=== PATIENT | female | born 1935 | race Caucasian/White ===

== ENCOUNTER → 2016-08-11 08:25 | Outpatient (CLI) | payer MEDICARE, BC ==
[~2016-08-11 08:25] MED LIST: CLARITIN 10 MG10 MG PO; COUMADIN6 MG PO; FERROUS SULFAT325 MG PO; LEVOTHYROXINE150 MCG PO; LOPRESSOR25 MG PO; PHENERGAN25 M1 PO; PRAVACHOL40 MG PO; ULTRAM50 MG PO; VITAMIN D31000 UNI2 PO
[2016-08-30 10:09] VITALS: BMI 37.2
== END | disposition home or self-care (01) ==
LOC: D.US 08:25
DX: B18.2 Chronic viral hepatitis C (principal)

== ENCOUNTER 2016-08-29 05:21 | Inpatient (IN) | payer MEDICARE, BC ==
[2016-08-28 14:22] LABS: HEMATOCRIT 42.9 % (36.0-48.0); HEMOGLOBIN 14.5 g/dL (12-16); MCH 30.9 pg (26.0-34.0); MCHC 33.8 g/dL (31.0-37.0); MCV 91.3 fL (80.0-100.0); MEAN PLATELET VOLUME 11.5 fL (7.4-10.4); PLATELET COUNT 117 10x3/uL (130-400); RDW 14.4 % (11.5-14.5)
[2016-08-28 14:32] LABS: APTT 33.2 SECONDS (22.8-39.4); INR 1.61 (0.85-1.17); PROTIME 19.1 SECONDS (11.6-15.0)
[2016-08-28 14:34] LABS: ANION GAP 11.3 mmol/L (8-16); CALCIUM 8.9 mg/dL (8.5-10.1); CARBON DIOXIDE 27.7 mmol/L (21.0-32.0); CREATININE - SERUM 0.8 mg/dL (0.6-1.3)
[2016-08-28 15:16] LABS: EOSINOPHILS 2 % (0-7); LYMPHOCYTES 56 % (15-50); MONOCYTES 1 % (2-11); NEUTROPHILS 40 % (40-80)
[2016-08-28 15:17] LABS: PLATELET ESTIMATE DECREASED
[2016-08-29] VITALS (22 sets, daily range): BP systolic 61–132; BP diastolic 22–91; BMI 33.3; BMI 33.1
[~2016-08-29] VITALS: Ht 165.1 cm; Wt 98.7 kg
[~2016-08-29 05:21] MED LIST changes: -PHENERGAN25 M1 PO; -ULTRAM50 MG PO
--- NOTE | 2016-08-29 06:44 | NUR ---
0649 CALLED SURGERY AND TALKED TO MILVIA ABOUT PLT COUNT AND PT/INR. SHE IS TO TELL LAWRENCE ABOUT WHEN HE COMES IN.
[2016-08-29] MEDS ORDERED: PHENERGAN25 M1 PO (08:42)
[2016-08-29] MEDS ORDERED: ULTRAM50 MG PO (08:42)
--- NOTE | 2016-08-29 10:14 | NUR ---
2448 BACK FROM [facility] PATIENT VERY SLEEPY AND RESP EVEN AND NONLA- BORED WOULD NOT MOVE FROM STRETCHER TO BED. HAD TO ASSIST FROM WITH 3 PEOPLE FROM STRETCHER TO BED. OPENS EYES AND SLEEPY.
--- NOTE | 2016-08-29 10:23 | NUR ---
1010 LR MODESTO OPEN.
--- NOTE | 2016-08-29 11:57 | NUR ---
1125 ENCOURAGED TO MOVE ASSISTED WITH GIVING SOME JELLO.
--- NOTE | 2016-08-29 13:32 | OP ---
PATIENT NAME: ALFONZO MAS MEDICAL RECORD: [id number] :37 LOCATION:D.OPS ADMISSION DATE: SURGEON: THEODORE BRAVO MD DATE OF OPERATION: 08/29/2016 PREOPERATIVE DIAGNOSES: 1. Gallstones. 2. Atrial fibrillation. 3. Hyperthyroidism. POSTOPERATIVE DIAGNOSES: 1. Gallstones. 2. Atrial fibrillation. 3. Hyperthyroidism. PROCEDURE: Laparoscopic cholecystectomy. SURGEON: Theodore Bravo MD REPORT OF PROCEDURE: The patient's abdomen was prepped and draped in sterile fashion. A cutdown was made on the superior aspect of the umbilicus, 0 Vicryls were placed in the fascia bilaterally and the fascia was incised with a 15 blade and bluntly entered the peritoneal cavity and placed a 12-mm Westley port. Under direct visualization, a 5 mm trocar was placed in the epigastrium and 2 more 5-mm trocars were placed in the right subcostal region. The gallbladder was elevated and it showed no sign of any inflammatory changes. The liver looked precirrhotic. The cystic artery and duct were dissected free and these were clipped proximally and distally and ligated in standard fashion. The gallbladder was taken off the liver bed using electrocautery and placed into an Endo Catch bag. At this point, the right upper quadrant was irrigated out and care was taken to make sure that any bleeding was treated with electrocautery. The ports and insufflation were then removed and the gallbladder was taken out through the umbilicus. The umbilical fascia was closed with interrupted 0 Vicryls times 3. The wounds were irrigated out with normal saline and infused with 10 mL of 0.25% Marcaine with epinephrine. The skin incisions were all closed with subcutaneous 5-0 Monocryl and dressed appropriately. COMPLICATIONS: None. CONDITION: Stable. ANESTHESIA: General endotracheal and local. BLOOD LOSS: Minimal. TRANSINT:[id number] Voice Confirmation ID: [id number] DOCUMENT ID: [id number] OPERATIVE REPORT [id number] ALFONZO MAS CHRISTIAN MD at 1332 CC: JOSE ALFREDO WALDRON MD [id number] DICTATION DATE: 08/29/16 0845 WATCH PARTS INSPECTOR: 08/29/16 0913 [id number] [place] [address]
--- NOTE | 2016-08-29 13:36 | NUR ---
1225 DENIES THE NEED FOR PAIN MEDS VERY LETHARGIC AND SLEPY ENCOURAGED TO WAKE UP AND TAKE FLUIDS BUT VERY DROWSY WILL OBSERVE.
--- NOTE | 2016-08-29 16:31 | NUR ---
[address] BRAVO PATIENT VERY WEAK AND DROWSY STILL NO NEW ORDERS JUST OBSERVE.
--- NOTE | 2016-08-29 16:41 | NUR ---
1500 TRIED TO GET PATIENT UP WENT TO ASSIST PATIENT UP AND SAT AND GOT VERY WEAK PALE HOT AND B/P DROPPED. PATIENT LIED BACK IN THE BED AND HAD SOME APNEA BUT THAN ROUSED SOME. V/S TAKEN B/P 62/32 77 16 LR OPEN AND TILTED BED. INCONTINENT OF URINE BED LINENS CHANGED.
--- NOTE | 2016-08-29 16:57 | NUR ---
1600 RESTING ORDERS RECEIVED FOR OBSERVATION TO BE MONITORED PATIENT IS DROWSY AND NEEDS TO BE MONITORED AND NOT SAFE FOR DISCHARGE.
--- NOTE | 2016-08-29 17:30 | NUR ---
PT TO ROOM 2223 VIA BED FROM OUTPATIENTS.PT NOT AWAKENING EASILY AND HAS GARBLED SPEACH.PT C/O NAUSEA AND IS SWEATY.BP VERY LOW SEE GRAPHICS.RAPID RESPONCE CALLED SEE RAPID SHEET.
--- NOTE | 2016-08-29 18:04 | NUR ---
RECIEVED PT AT THIS TIME FROM FLOOR FOR HYPOTENSION. PT ALERT AND ORIENTED. TRANSFERRED VIA BED WITH ACCOMPANIMENT FROM STAFF. PT FAMILY AWARE. TEMPERATURE NOTED AT 95.4 WHEN PT ARRIVED TO FLOOR, BEAR HUGGER PLACED. WILL CONTINUE PLAN OF CARE.
[2016-08-29 18:07] LABS: BASOPHILS 0.2 % (0.0-2.0); EOSINOPHILS 0.2 % (0-7); IMMATURE GRANULOCYTES 0.5 % (0-5); LYMPHOCYTES 16.6 % (15-50); MCH 30.1 pg (26.0-34.0); MCHC 31.8 g/dL (31.0-37.0); MEAN PLATELET VOLUME 11.7 fL (7.4-10.4); MONOCYTES 6.9 % (2-11); NEUTROPHILS 75.6 % (40-80); RDW 14.7 % (11.5-14.5)
[2016-08-29 18:08] LABS: HEMATOCRIT 32.1 % (36.0-48.0); HEMOGLOBIN 10.2 g/dL (12-16); MCV 94.7 fL (80.0-100.0); PLATELET COUNT 166 10x3/uL (130-400); RBC 3.39 10x6/uL (4.00-5.40); WBC 13.3 10x3/uL (4.8-10.8)
--- NOTE | 2016-08-29 18:09 | NUR ---
1530 REPORTED V/S AND SYNCOPAL EPISODE TO DR. CESPEDES AND PATIENT HOT AND COLD. ORDERS RECEIVED.
--- NOTE | 2016-08-29 18:11 | NUR ---
1635 TO ROOM VIA BED TRANSFERRED BY 2 NURSES. REPORT WAS GIVEN TO CHELSEA MANRIQUE.
--- NOTE | 2016-08-29 19:00 | NUR ---
1900: Pt SBP 70's at this time. Pt left hand PIV changed to LR.
--- NOTE | 2016-08-29 19:07 | NUR ---
BOLUS DOSE OF TRANEXAMIC ACID INITIATED AT 240 CC/HR, PER ORDER
--- NOTE | 2016-08-29 19:30 | NUR ---
1930: Transexamic Acid infusing over 15 minutes. Verified with pharmacy.
--- NOTE | 2016-08-29 19:30 | NUR ---
1930: Pt to CT with x2 RNs.
[2016-08-29 19:37] LABS: INR 1.55 (0.85-1.17); PROTIME 18.5 SECONDS (11.6-15.0)
[2016-08-29 19:39] LABS: APTT 24.2 SECONDS (22.8-39.4)
--- NOTE | 2016-08-29 20:00 | NUR ---
2000: Pt c/o nausea, but has not vommitted. Pt SBP remains 80-90's. Zofran IVP admin.
[2016-08-29 20:46] LABS: HEMATOCRIT 31.2 % (36.0-48.0); HEMOGLOBIN 9.8 g/dL (12-16); MCH 29.7 pg (26.0-34.0); MCHC 31.4 g/dL (31.0-37.0); MCV 94.5 fL (80.0-100.0); MEAN PLATELET VOLUME 11.5 fL (7.4-10.4); RBC 3.3 10x6/uL (4.00-5.40); RDW 14.7 % (11.5-14.5); WBC 16.1 10x3/uL (4.8-10.8)
--- NOTE | 2016-08-29 21:00 | NUR ---
2100: Dr. Lucero here at bedside. Levophed gtt started at 5 mcg/min to keep SBP >90. Pt skin cool to touch and c/o "chills." Ekaterina Hugger remains in place. During assessment pt midline lap incision sites bleeding small amount of blood. MD assessed. ABD distended and BS remain absent x4 with auscultation.
--- NOTE | 2016-08-29 21:15 | NUR ---
2115: Pt alert and oriented. Discussed CVL placement with patient including risks vs benifits. Pt agrees. Dr. Lucero inserted right jugular triple lumen catheter at this time.
--- NOTE | 2016-08-29 21:30 | NUR ---
2130: FFP ready and started per CVL, Levophed changed to CVL and continue to titrate to keep SBP >90.
--- NOTE | 2016-08-29 22:45 | NUR ---
2245: Lab returned and called to Dr. Lucero. New orders rec'd. 2 amps NAHCO3- IVP admin and CACL- 1 gram IV over 1 hour started via CVL. PRBC ordered.
[2016-08-29 22:47] LABS: BASOPHILS 0.1 % (0.0-2.0); EOSINOPHILS 0 % (0-7); HEMATOCRIT 26.6 % (36.0-48.0); HEMOGLOBIN 8.5 g/dL (12-16); IMMATURE GRANULOCYTES 0.5 % (0-5); LYMPHOCYTES 9.7 % (15-50); MCH 29.9 pg (26.0-34.0); MCV 93.7 fL (80.0-100.0); MONOCYTES 10.8 % (2-11); NEUTROPHILS 78.9 % (40-80); PLATELET COUNT 170 10x3/uL (130-400); RBC 2.84 10x6/uL (4.00-5.40); RDW 14.6 % (11.5-14.5); WBC 15.2 10x3/uL (4.8-10.8)
--- NOTE | 2016-08-29 23:40 | NUR ---
2340: Segovia catheter placed by Kaylah So RN under sterile technique and immediate yellow urine return. Placed to gravity at this time.
--- NOTE | 2016-08-29 23:45 | NUR ---
2345: PRBC started at this time wtih NS and blood tubing. Pt temp 98F oral at this time. Ekaterina Hugger remains in place. Continue to titrate Levophed to keep SBP >90 mmhg.
[2016-08-30] VITALS (69 sets, daily range): BP systolic 86–140; BP diastolic 49–72; Ht 165.1 cm; Wt 98.7 kg
--- NOTE | 2016-08-30 02:00 | NUR ---
0200: Dr. Lucero called and update provided. No new orders at this time. Pt levophed remains 15 mcg/min.
--- NOTE | 2016-08-30 05:00 | NUR ---
0500: Pt SBP >100 and continue to titrate levophed down at this time. PRBCs completed. Pt remains SR 90s on CM. Pt states nausea is better.
[2016-08-30 05:03] LABS: BASOPHILS 0.1 % (0.0-2.0); EOSINOPHILS 0.1 % (0-7); HEMATOCRIT 30.8 % (36.0-48.0); IMMATURE GRANULOCYTES 0.3 % (0-5); LYMPHOCYTES 13.8 % (15-50); MCH 29.9 pg (26.0-34.0); MCHC 32.5 g/dL (31.0-37.0); MCV 91.9 fL (80.0-100.0); MEAN PLATELET VOLUME 11.3 fL (7.4-10.4); MONOCYTES 12.8 % (2-11); NEUTROPHILS 72.9 % (40-80); PLATELET COUNT 142 10x3/uL (130-400); RBC 3.35 10x6/uL (4.00-5.40); RDW 14.6 % (11.5-14.5); WBC 14.5 10x3/uL (4.8-10.8)
[2016-08-30 05:14] LABS: APTT 28.9 SECONDS (22.8-39.4); INR 1.23 (0.85-1.17); PROTIME 15.4 SECONDS (11.6-15.0)
[2016-08-30 05:25] LABS: ALBUMIN 2.6 g/dL (3.4-5.0); ANION GAP 12.3 mmol/L (8-16); BILIRUBIN - TOTAL 0.85 mg/dL (0.2-1.3); CALCIUM 8.5 mg/dL (8.5-10.1); CARBON DIOXIDE 26.8 mmol/L (21.0-32.0); CREATININE - SERUM 1.3 mg/dL (0.6-1.3); MAGNESIUM - SERUM 1.3 mg/dL (1.8-2.4); PHOSPHOROUS 2.7 mg/dL (2.5-4.9); POTASSIUM - SERUM 4.1 mmol/L (3.5-5.1); PROTEIN - SERUM 5.1 g/dL (6.4-8.2)
--- NOTE | 2016-08-30 06:00 | NUR ---
0600: Pt's here at bedside. Update provided at this time.
[2016-08-30 14:23] LABS: HEMATOCRIT 29.1 % (36.0-48.0); HEMOGLOBIN 9.6 g/dL (12-16)
--- NOTE | 2016-08-30 19:30 | NUR ---
1930: Pt resting in bed with eyes closed. Open to verbal. Pt states she is feeling much better today. Pt remains SR on CM with SBP >100. Right Jugular CVL intact with LR at 100 cc/hr. Levophed remains off. No s/s of bleeding, oozing, or swelling assessed. ABD remains distended, but BS active and pt reports she is passing gas. Segovia remains to gravity with >30 cc/hr UOP.
--- NOTE | 2016-08-30 23:15 | NUR ---
2315: Pt requests pain medicine for back pain. Pt states that it helps a lot. Pt remains SR 70's on CM with SBP >100. Remains off levophed gtt. Provided pain rx and pt able to swallow without difficulty. No bleeding is seen.
[2016-08-31] VITALS (19 sets, daily range): BP systolic 109–137; BP diastolic 49–84
--- NOTE | 2016-08-31 02:00 | NUR ---
0200: Pt resting with eyes closed at this time. Easily arousable to verbal. Pt with no c/o at this time. Pt remains SR on CM with SBP >100. No s/s of bleeding noted.
--- NOTE | 2016-08-31 04:30 | NUR ---
0430: Pt resting with eyes closed. Open to verbal and pt LOCx3. Pt remains SR on CM with SBP 120's. Levophed remains off. Pt continues with 024LNC with RR decreased while sleeping 14-18x with SPO2 95%. ABD distended, but BS remain active. Pt describes intermittent "upset stomach" and "throat pain." Pt describes as burning. Carafate admin as per orders. No s/s of bleeding noted. Offered to reposition pt. Pt refused. Pt did request ice chips. Provided as per clear liquid diet. Pt reports no difficulty with swallow.
[2016-08-31 04:45] LABS: BASOPHILS 0.1 % (0.0-2.0); EOSINOPHILS 0.1 % (0-7); HEMATOCRIT 26.2 % (36.0-48.0); HEMOGLOBIN 8.5 g/dL (12-16); IMMATURE GRANULOCYTES 0.2 % (0-5); LYMPHOCYTES 23.2 % (15-50); MCH 30.1 pg (26.0-34.0); MCHC 32.4 g/dL (31.0-37.0); MCV 92.9 fL (80.0-100.0); MEAN PLATELET VOLUME 10.8 fL (7.4-10.4); MONOCYTES 10.3 % (2-11); NEUTROPHILS 66.1 % (40-80); RBC 2.82 10x6/uL (4.00-5.40); RDW 15.5 % (11.5-14.5)
[2016-08-31 04:48] LABS: PLATELET COUNT 99 10x3/uL (130-400); WBC 8.3 10x3/uL (4.8-10.8)
[2016-08-31 04:53] LABS: ANION GAP 6.8 mmol/L (8-16); CALCIUM 7.8 mg/dL (8.5-10.1); POTASSIUM - SERUM 4.3 mmol/L (3.5-5.1)
[2016-08-31 04:56] LABS: CARBON DIOXIDE 34.5 mmol/L (21.0-32.0); CREATININE - SERUM 0.8 mg/dL (0.6-1.3)
--- NOTE | 2016-08-31 17:03 | NUR ---
0830-DR LYNCH AT [facility]-PT AWAKE AD ALERT-R CVL SALINE LOCKED-ASSISTED TO BEDSIDE CHAIR-PROVIDED WITH ORAL CARE SUPPLIES-PARTIAL BATH GIVEN 09-AMBULATED WITH PT WITH WALKER IN UNIT 1030-SITTING UP IN CHAIR-DR CESPEDES CALLED UNIT 1330-ASSISTED BACK TO BED 1700-JACKY Miller/June
--- NOTE | 2016-08-31 18:04 | NUR ---
1729-PT ASLEEP-AWAKENED FOLLOWING PERSISTANT VERBAL AND TACTILE STIMULI-AWAKENED DISORIENTED-SLUGGISH TO FOLLOW COMMANDS-JACKY MERAZ D/C'D WITH TIP INTACT-CONTINUED TO REORIENT PT TO SITUATION-ASKED PT WHAT TYPE OF SURGERY SHE STATED APPLES-ASKED HER WHO THE SURGEON WAS-SHE STATED-LUZMARIA?-ASKED HER WHERE SHE WAS -SHE STATED ONAISCOOTER?-ASKED HER WHO HER REGULAR DR WAS SHE STATED KIMBERLEY--ATTEMPTED TO DRINK [id number] BUBBLED IN STRAW-KBRLa
--- NOTE | 2016-08-31 19:35 | NUR ---
1800-SPOKE WITH DR AMADOR AND INFORMED OF VERBAL XFLIG-[id number]-ORDER RECIEVED AND NOTED 1829-DR CESPEDES AT [facility] AND UPDATED WITH INCIDENT AND ORDER XDE-[id number]-EAEH D/C'D-STATED TOO HIGH RISK -REQUESTED TO LEAVE IN ICU TONIGHT AND CANCEL TRANSFER-NURSING SANITATION LEAD NOTIFIED-RUBEN
--- NOTE | 2016-08-31 19:43 | NUR ---
REPORT RECIEVED. ASSESSMENT COMPLETE PER FLOW SHEET. VSS. PT AWAKE ALERT ORIENTED X4 GIVEN ICE CREAM PER REQUEST. PT DENIES PAIN OR FURTHER NEEDS. O2 VIA NC 2L 98% RR 16 BILAT LUNGS CLEAR. ABD SOFT BS ACTIVE X4. GENERALIZED EDEMA NOTED X4 EXTREMETIES. HEART S1S2 HR 94 NSR. WILL CONTINUE TO MONITOR.
[2016-08-31 20:01] LABS: HEMATOCRIT 28.2 % (36.0-48.0); HEMOGLOBIN 8.9 g/dL (12-16)
--- NOTE | 2016-08-31 21:24 | NUR ---
NO FAMILY AT BEDSIDE. 2100 MEDS ADM WITHOUT DIFFICULTY. NO NEW FINDINGS. VSS
--- NOTE | 2016-08-31 22:35 | NUR ---
RECIEVED PT TO FLOOR FROM ICU VIA WHEELCHAIR. PT IS ALERT AND ORIENTED AND ABLE TO VERBALIZE NEEDS. IV IS PATENT AND SALINE LOC AT THIS TIME. PT IS AMBULATORY WITH ASSISTANCE. PT DENIES ANY PAIN AT THIS TIME. O2 @ 2 PER NASAL CANNULA. PT IS ORIENTED TO ROOM AND USE OF CALL LIGHT. NO NEEDS ARE VERBALIZED AT THIS TIME. WILL CONTINUE TO MONITOR. SIDE RAILS ARE UP X 2. BED IS IN LOWEST POSITION. CALL LIGHT IS WITHIN REACH.
--- NOTE | 2016-08-31 22:37 | NUR ---
REPORT GIVEN. PT TRANSFERED. VSS. DENIES NEEDS.
[2016-09-01 01:00] VITALS: BP 148/52
[2016-09-01 05:00] VITALS: BP 138/78
[2016-09-01 05:38] LABS: BASOPHILS 0.1 % (0.0-2.0); EOSINOPHILS 1.6 % (0-7); HEMATOCRIT 28.3 % (36.0-48.0); HEMOGLOBIN 8.9 g/dL (12-16); IMMATURE GRANULOCYTES 0.6 % (0-5); LYMPHOCYTES 27.7 % (15-50); MCH 30.4 pg (26.0-34.0); MCHC 31.4 g/dL (31.0-37.0); MONOCYTES 10.9 % (2-11); NEUTROPHILS 59.1 % (40-80); RBC 2.93 10x6/uL (4.00-5.40); RDW 15.7 % (11.5-14.5); WBC 8.4 10x3/uL (4.8-10.8)
[2016-09-01 05:48] LABS: MCV 96.6 fL (80.0-100.0); PLATELET COUNT 120 10x3/uL (130-400)
[2016-09-01 06:10] LABS: ALBUMIN 2.7 g/dL (3.4-5.0); ALKALINE PHOSPHATASE 62 U/L (46-116); BILIRUBIN - TOTAL 0.41 mg/dL (0.2-1.3); CALC OSMOLALITY 283 mosm/kg (275-300); CALCIUM 8.3 mg/dL (8.5-10.1); CARBON DIOXIDE 35.1 mmol/L (21.0-32.0); CHLORIDE - SERUM 103 mmol/L (98-107); CREATININE - SERUM 0.7 mg/dL (0.6-1.3); GLUCOSE 154 mg/dL (74-106); PHOSPHOROUS 2.1 mg/dL (2.5-4.9); POTASSIUM - SERUM 4.5 mmol/L (3.5-5.1); PROTEIN - SERUM 5.9 g/dL (6.4-8.2); SODIUM 140 mmol/L (136-145); UREA NITROGEN 19 mg/dL (7-18); eGFR NON AFRICAN AMERICAN 86 mL/min (90-120)
[2016-09-01 06:26] LABS: ALT (SGPT) 81 U/L (10-68); MAGNESIUM - SERUM 2.1 mg/dL (1.8-2.4)
--- NOTE | 2016-09-01 07:00 | NUR ---
REPORT RECIEVED ASSUMED CARE. PATIENT IN BED WITH IV INTACT. NO COMPLAINTS AT THIS TIME. EYES CLOSED RESTING QUIETLY. CALL LIGHT WITHIN REACH.
[2016-09-01 07:56] VITALS: BP 127/62
--- NOTE | 2016-09-01 08:01 | NUR ---
PATIENT IN BED WITH NO COMPLAINTS AT THIS TIME. IV INTACT. O2 ON. SITTING UP EYES OPEN WITH NO SIGNS OF DISTRESS. CALL LIGHT WITHIN REACH.
--- NOTE | 2016-09-01 11:15 | NUR ---
PATIENT IN BED WITH IV INTACT. NO COMPLAINTS AT THIS TIME. FAMILY AT BEDSIDE CALL LIGHT WITHIN REACH.
[2016-09-01 12:42] VITALS: BP 147/51
--- NOTE | 2016-09-01 13:00 | NUR ---
PATIENT UP TO BSC AT THIS TIME. VOIDED 300 WITH NO PROBLEMS. FAMILY AT BEDSIDE. CALL LIGHT WITHIN REACH.
[2016-09-01 16:07] VITALS: BP 145/45
--- NOTE | 2016-09-01 16:24 | NUR ---
Patient Name: ALFONZO MAS Admission Status: Elective Accout number: [id number] Admission Date: 08-30-2016 : 1935 Admission Diagnosis: Attending: MARTÍN Current LOS: 2 Anticipated DC Date: 09-04-2016 Planned Disposition: Home or Self Care Primary Insurance: MEDICARE A & B Discharge Planning Comments: CM MET WITH PATIENT REGARDING D/C NEEDS AND PLANS. PATIENT STATED SHE LIVES WITH HER SPOUSE (TANIA) AND HE WILL DRIVE HER HOME AT DISCHARGE. PATIENT STATED SHE HAS NO STEPS TO ENTER HOME AND 1 FLIGHT W/RAILS INSIDE HOME (DOES NOT USE THEM). PATIENT STATED SHE IS INDEPENDENT WITH HER CARE AND HAS A WALKER, BS COMMODE, SHOWER CHAIR, AND NEBULIZER AT HOME. PATIENTS PCP IS DR. WALDRON AND PHARMACY IS [facility]. PATIENT HAS NEVER HAD HOME HEALTH AND DOES NOT WANT IT AT DISCHARGE. CM WILL CONTINUE TO FOLLOW PATIENT WITH D/C NEEDS AND PLANS. PCP DR. WALDRON [facility]- [phone] TANIA (SPOUSE) [phone] OR [phone] Honing Job Setter: Zaida Pike Is the patient Alert and Oriented? Yes 0 * How many steps to enter\exit or inside your home? 1 FLIGHT 0 * PCP DR. WALDRON 0 * Pharmacy [facility] 0 * Preadmission Environment Home with Family 0 * ADLs Independent 0 * Equipment Bedside Commode Nebulizer Shower Chair Walker 0 * List name and contact numbers for known caregivers / representatives who currently or will assist patient after discharge: TANIA (SPOUSE) [phone] [place] [phone] 0 * Community resources currently utilized None 0 * Additional services required to return to the preadmission environment? Yes 0 * Can the patient safely return to the preadmission environment? Yes 0 * Has this patient been hospitalized within the prior 30 days at any hospital? No 0 Grand Total: 0
--- NOTE | 2016-09-01 18:45 | NUR ---
PATIENT IN BED WITH IV INTACT. NO COMPLAINTS AT THIS TIME. CALL LIGHT WITHIN REACH.
--- NOTE | 2016-09-01 19:15 | NUR ---
RECIEVED SHIFT REPORT. PT IS LYING IN BED. ALERT AND ORIENTED AND ABLE TO VERBALIZE NEEDS. IV IS PATENT AND SALINE LOC AT THIS TIME. O2 @ 2 PER NASAL CANNULA. PT IS AMBULATORY WITH ASSISTANCE. LAP SITES TO ABDOMEN C/D/I. PT DENIES ANY PAIN AT THIS TIME. NO NEEDS ARE VERBALIZED AT THIS TIME. WILL CONTINUE TO MONITOR. SIDE RAILS ARE UP X 2. BED IS IN LOWEST POSITION. BED ALARM IS ON FOR SAFETY. CALL LIGHT IS WITHIN REACH.
[2016-09-01 21:00] VITALS: BP 128/85
--- NOTE | 2016-09-01 21:04 | NUR ---
SHIFT ASSESSMENT COMPLETED. NIGHT MEDS GIVEN WITH NO PROBLEMS. NO NEEDS ARE VOICED. WILL MONITOR. SIDE RAILS X 2. BED LOW. BED ALARM ON. CALL LIGHT IN REACH.
[2016-09-02 01:00] VITALS: BP 130/88
[2016-09-02 05:00] VITALS: BP 133/80
[2016-09-02 05:40] LABS: BASOPHILS 0.2 % (0.0-2.0); HEMATOCRIT 26.3 % (36.0-48.0); HEMOGLOBIN 8.6 g/dL (12-16); IMMATURE GRANULOCYTES 0.3 % (0-5); LYMPHOCYTES 29.9 % (15-50); MCH 30.6 pg (26.0-34.0); MCHC 32.7 g/dL (31.0-37.0); MEAN PLATELET VOLUME 10.7 fL (7.4-10.4); MONOCYTES 10.9 % (2-11); NEUTROPHILS 55.7 % (40-80); PLATELET COUNT 117 10x3/uL (130-400); RBC 2.81 10x6/uL (4.00-5.40); RDW 14.4 % (11.5-14.5)
[2016-09-02 05:59] LABS: MCV 93.6 fL (80.0-100.0)
[2016-09-02 06:01] LABS: INR 1.03 (0.85-1.17); PROTIME 13.3 SECONDS (11.6-15.0)
[2016-09-02 06:19] LABS: CALC OSMOLALITY 281 mosm/kg (275-300); CALCIUM 8.3 mg/dL (8.5-10.1); CARBON DIOXIDE 33.8 mmol/L (21.0-32.0); CHLORIDE - SERUM 100 mmol/L (98-107); CREATININE - SERUM 0.7 mg/dL (0.6-1.3); GLUCOSE 141 mg/dL (74-106); SODIUM 140 mmol/L (136-145); UREA NITROGEN 16 mg/dL (7-18); eGFR NON AFRICAN AMERICAN 86 mL/min (90-120)
[2016-09-02 06:24] LABS: POTASSIUM - SERUM 3.7 mmol/L (3.5-5.1)
--- NOTE | 2016-09-02 08:00 | NUR ---
PT SITTING IN BED TALKING TO DR AT BEDSIDE. RESP EVEN AND NONLABORED LUNG SOUNDS CLEAR SKIN PINK WARM AND DRY WITH EDEMA CAPILLARY REFILL<3 SEC, SI X4 ON ABDOMEN CLEAN WARM AND DRY WITH NO DRAINAGE. [id number] BED AT LOWEST SETTING CALL LIGHT WITHIN REACH AND SRX2. PT DENIES NEEDS AT THIS TIME.
[2016-09-02 08:19] VITALS: BP 111/39
--- NOTE | 2016-09-02 11:36 | NUR ---
RIGHT CVL DRESSING CHANGED PER CVL TRAY PER PROTOCOL. BIOPATCH AND OPSITE APPLIED. DATED AND INITALED.
[2016-09-02 11:46] VITALS: BP 145/59
--- NOTE | 2016-09-02 12:13 | NUR ---
NUTRITION MONITORING & EVAL CHART REVIEWED, PT VISIT. REQUESTING SOFT FOODS SECONDARY TO SORE THROAT. ASSISTED PT TO WRITE IN PREFERENCES. RD FOLLOWING
--- NOTE | 2016-09-02 13:45 | NUR ---
Rehab Note- Rehab Prescreen Order received. The patient appears to be an appropriate IRF candidate when the physician sees that the patient is ready to be discharged from the acute hospital. Thank you for this referral! Zuleima Eubanks RN Clinical Liaison, [facility]
[2016-09-02 15:13] VITALS: BP 127/44
--- NOTE | 2016-09-02 19:25 | NUR ---
RECIEVED SHIFT REPORT. PT IS LYING IN BED. ALERT AND ORIENTED AND ABLE TO VERBALIZE NEEDS. IV IS PATENT AND SALINE LOC. O2 @ 2 PER NASAL CANNULA. PT IS AMBULATORY WITH ASSISTANCE. LAP SITES TO ABDOMEN C/D/I. PT DENIES ANY PAIN AT THIS TIME. NO NEEDS ARE VERBALIZED AT THIS TIME. WILL CONTINUE TO MONITOR. SIDE RAILS ARE UP X 2. BED IS IN LOWEST POSITION. BED ALARM IS ON FOR SAFETY. CALL LIGHT IS WITHIN REACH.
[2016-09-02 21:00] VITALS: BP 134/56
--- NOTE | 2016-09-02 21:32 | NUR ---
SHIFT ASSESSMENT COMPLETED. PT INFORMED ME THAT WITH ANOTHER NURSE SHE HAS SIGNED THE WAIVER TO REFUSE BED ALARM. NIGHT MEDS GIVEN WITH NO PROBLEMS. NO NEEDS ARE VOICED. WILL MONITOR. SIDE RAILS X 2. BED LOW. CALL LIGHT IN REACH.
[2016-09-03 01:00] VITALS: BP 138/66
[2016-09-03 05:00] VITALS: BP 125/56
[2016-09-03 05:55] LABS: BASOPHILS 0.2 % (0.0-2.0); HEMATOCRIT 26.1 % (36.0-48.0); HEMOGLOBIN 8.8 g/dL (12-16); IMMATURE GRANULOCYTES 0.7 % (0-5); LYMPHOCYTES 29.2 % (15-50); MCH 31.9 pg (26.0-34.0); MCHC 33.7 g/dL (31.0-37.0); MCV 94.6 fL (80.0-100.0); MEAN PLATELET VOLUME 10.3 fL (7.4-10.4); MONOCYTES 12.2 % (2-11); NEUTROPHILS 54.7 % (40-80); PLATELET COUNT 130 10x3/uL (130-400); RBC 2.76 10x6/uL (4.00-5.40); RDW 14.5 % (11.5-14.5); WBC 5.7 10x3/uL (4.8-10.8)
[2016-09-03 06:16] LABS: INR 0.96 (0.85-1.17); PROTIME 12.6 SECONDS (11.6-15.0)
[2016-09-03 06:17] LABS: CALC OSMOLALITY 281 mosm/kg (275-300); CALCIUM 8.1 mg/dL (8.5-10.1); CARBON DIOXIDE 36.5 mmol/L (21.0-32.0); CHLORIDE - SERUM 102 mmol/L (98-107); CREATININE - SERUM 0.6 mg/dL (0.6-1.3); GLUCOSE 125 mg/dL (74-106); POTASSIUM - SERUM 3.6 mmol/L (3.5-5.1); SODIUM 141 mmol/L (136-145); UREA NITROGEN 12 mg/dL (7-18); eGFR NON AFRICAN AMERICAN > 90 mL/min (90-120)
[2016-09-03 08:00] VITALS: BP 148/56
--- NOTE | 2016-09-03 08:13 | NUR ---
PT AOX4 RESPONDS APPROPRIATELY TO QUESTIONS. RESP. EVEN AND NONLABORED LUNG SOUNDS CLEAR X5 LOBES. SKIN PINK WARM AND DRY WITH GOOD TURGOR O EDEMA CAPILLARY REFILL<3 SEC ABDOMEN SOFT AND ROUNDED BS+X4 QUADS. PT. STATES PASSING GAS. 4X SI ON ABDOMEN CLEAN DRY AND INTACT WITH NO DRAINAGE. BED AT LOWEST SETTINGS. CALL LIGT WITHIN REACH. WILL CONTINUE TO MONITOR.
[2016-09-03 08:22] VITALS: BP 137/47
--- NOTE | 2016-09-03 11:50 | NUR ---
CM REASSESSMENT NOTE: PATIENT HAS BEEN ACCEPTED TO IP REHAB TODAY.
--- NOTE | 2016-09-03 18:19 | NUR ---
PT. GIVEN DC INSTRUCTIONS WITH IN ROOM. PT AND FAMILY VERBALIZE UNDERSTANDING OF INSTRUCTIONS. REPORT AND CARE GIVEN TO MIRTHA IN REHAB TAKEN TO REHAB VIA WHEELCHAIR.
--- NOTE | 2016-10-03 09:40 | OP ---
PATIENT NAME: ALFONZO MAS MEDICAL RECORD: [id number] :37 LOCATION:D.[id number] ADMISSION DATE:08/30/16 SURGEON: ZHANE CESPEDES MD DATE OF OPERATION: 08/29/2016 PREOPERATIVE DIAGNOSES: 1. Hemorrhagic shock. 2. Hypotension. 3. Acute blood loss anemia requiring transfusions. 4. Hypothermia. POSTOPERATIVE DIAGNOSES: 1. Hemorrhagic shock. 2. Hypotension. 3. Acute blood loss anemia requiring transfusions. 4. Hypothermia. PROCEDURE: Insertion of right supraclavicular subclavian triple-lumen central venous catheter. A central venous access was necessary as we need to get some PVP's nd also she is going to require numerous blood products. It appears that she likely bled sometime postoperatively. I have reviewed the CT images. I have discussed them with Dr. Trae Sullivan as well. Her hematocrit appears to have stabilized. She is doing better pressors as well as with blood products. I am going to hold off on taking her back to the operating room as I think that the bleeding was probably several hours ago and it has probably ceased. OPERATIVE COURSE: This patient was seen in her bedside. She gave verbal consent for the procedure. The right neck and right upper chest were sterilely prepped and draped. A local anesthetic was used to infiltrate the skin and subcutaneous tissues just cephalad to the clavicle. The right subclavian vein was percutaneously accessed in an antegrade fashion utilizing a supraclavicular approach. A guidewire passed easily. A small skin kelsey was accomplished. A vessel dilator was used to dilate the subcutaneous tract. A 16-cm triple lumen central venous catheter was inserted to the hub. It was sutured in place times 3. All lumens flushed easily and aspirated dark, nonpulsatile blood. The site can be used immediately. A stat portable chest x-ray is pending. TRANSINT:[id number] Voice Confirmation ID: [id number] DOCUMENT ID: [id number] ZHANE CESPEDES MD at 0940 CC: [id number] DICTATION DATE: 08/29/162126 PROTOTYPE DEICER ASSEMBLER: 08/30/16 0158 DIS IN 09/03/16 [id number] [place] [address]
== END 2016-09-03 18:25 | DRG 908 ==
LOC: D.OPS 05:21 → D.PAN 07:30 → D.OPS 07:30 → D.PAN 12:00 → D.MS 16:24 → OBSVTIME 16:24 → D.MS 16:24 → D.ICU 16:24 → D.MS 08-30 09:20 → D.ICU 08-30 09:20 → D.MS 08-31 22:38
PROVIDERS: Family Medicine; Surgery; ADMIT Surgery
PROC: 02HV33Z Insertion of Infusion Device into Superior Vena Cava, Percutaneous Approach (ICD-10-PCS; 2016-08-29)
PROC: 0FT44ZZ Resection of Gallbladder, Percutaneous Endoscopic Approach (ICD-10-PCS; principal; 2016-08-29 07:30)
DX: K91.840 Postprocedural hemorrhage of a digestive system organ or structure following a digestive system procedure (principal); D62 Acute posthemorrhagic anemia; T81.19XA Other postprocedural shock, initial encounter; K80.80 Other cholelithiasis without obstruction; I48.91 Unspecified atrial fibrillation; E05.90 Thyrotoxicosis, unspecified without thyrotoxic crisis or storm; Y83.8 Other surgical procedures as the cause of abnormal reaction of the patient, or of later complication, without mention of misadventure at the time of the procedure; I95.1 Orthostatic hypotension; R41.0 Disorientation, unspecified; Z95.0 Presence of cardiac pacemaker; Z79.01 Long term (current) use of anticoagulants; Z87.891 Personal history of nicotine dependence; R68.0 Hypothermia, not associated with low environmental temperature